=== PATIENT | female | born 1955 | race Caucasian/White ===

== ENCOUNTER 2017-10-25 21:36 | Emergency (ER) | payer OTHER ==
[2017-10-25] MEDS: hydrALAZINE INJ 20 MG/ML VIAL IV (21:43)
[2017-10-25] MEDS: METOCLOPRAMIDE INJ 10MG/2ML VIAL (J2765) IV (21:45)
[2017-10-25] MEDS: FUROSEMIDE 100 MG/10 ML VIAL (J1940) IV (22:00)
[2017-10-25] MEDS: NITROGLYCERIN 2% OINT 1 GM *U/D* PKT TOP (22:00)
[2017-10-25 22:02] LABS: HEMATOCRIT 41.4 % (36.0-47.0); HEMOGLOBIN 13.6 g/dl (12.0-15.5); MEAN CORPUSCULAR HEMOGLOBIN 30.7 pg (27.0-33.0); MEAN CORPUSCULAR HGB CONC 32.9 g/dl (32.0-36.5); MEAN CORPUSCULAR VOLUME 93.5 fl (80.0-96.0); PLATELET COUNT, AUTOMATED 273 10^3/uL (150-450); RED BLOOD COUNT 4.43 10^6/uL (4.00-5.40); RED CELL DISTRIBUTION WIDTH 13.2 % (11.5-14.5)
[2017-10-25 22:06] LABS: ABG BASE EXCESS -9.3 (-2.0-2.0); ABG HCO3 19.5 MEQ/L (22.0-26.0); ABG O2 SATURATION 78.4 % (95.0-99.0); ABG PARTIAL PRESSURE CO2 53.7 mmHg (35.0-45.0); ABG PARTIAL PRESSURE O2 52.3 mmHg (75.0-100.0); ABG STANDARD HCO3 16.8 MEQ/L (22.0-26.0); ABG TOTAL CO2 21.2 MEQ/L (23.0-31.0)
[2017-10-25 22:09] LABS: ABG pH (ARTERIAL) 7.178 UNITS (7.350-7.450)
[2017-10-25 22:12] LABS: INR 1.16
[2017-10-25 22:15] LABS: POSITIVE DIFF POS FLAG; WHITE BLOOD COUNT 14.9 10^3/uL (4.0-10.0)
[2017-10-25 22:16] LABS: ADD MANUAL DIFFER YES; DIFF SLIDE NUMBER 352
[2017-10-25] MEDS: NITROGLYCERIN/D5W 100MCG/ML 25 MG in APPROPRIATE DILUENT 1 EA IV (22:16)
[2017-10-25 22:21] LABS: EOSINOPHILS 1 % (0-5); LYMPHOCYTES 63 % (16-52); MONOCYTES 2 % (0-8); NEUTROPHILS 34 % (35-75); PLATELET ESTIMATE NORMAL (NORMAL)
[2017-10-25 22:35] LABS: ANION GAP 14 MEQ/L (8-16); BLOOD UREA NITROGEN 33 MG/DL (7-18); CALCIUM LEVEL 8.6 MG/DL (8.8-10.2); CARBON DIOXIDE LEVEL 20 MEQ/L (21-32); CHLORIDE LEVEL 107 MEQ/L (98-107); CPK CREATINE PHOSPHOKINASE 160 U/L (26-192); CREATININE FOR GFR 1.73 MG/DL (0.55-1.30); GLOMERULAR FILTRATION RATE 31.9 (>45); GLUCOSE, FASTING 383 MG/DL (70-100); POTASSIUM SERUM 3.8 MEQ/L (3.5-5.1); SODIUM LEVEL 141 MEQ/L (136-145); TROPONIN I 0.72 NG/ML (< 0.10)
[2017-10-25 22:40] LABS: CK-MB VALUE MASS 5.1 NG/ML (<3.6); MB/CK RELATIVE INDEX 3.18 (< OR =4); NT-PRO BNP 7412 PG/ML (<125)
[2017-10-25] MEDS: ASPIRIN 325 MG TAB PO (23:00)
[2017-10-26 05:38] LABS: CPK CREATINE PHOSPHOKINASE 598 U/L (26-192)
[2017-10-26 05:39] LABS: CK-MB VALUE MASS 46.3 NG/ML (<3.6); MB/CK RELATIVE INDEX 7.74 (< OR =4)
[2017-10-26] MEDS: HEPARIN DRIP 25,000 UNITS in APPROPRIATE DILUENT 1 EA IV (05:47)
[2017-10-26] MEDS: HEPARIN SOD (PORCINE) 5000 UNITS/ML VIAL IV (06:00)
[2017-10-26] MEDS ORDERED: TENECTEPLASE 50 MG KIT (TNKase)(J3101) IV (06:00)
[2017-10-26] MEDS: CLOPIDOGREL 300 MG TAB (PLAVIX) PO (06:01)
== END 2017-10-26 06:48 | disposition other institution (70) ==
LOC: M ED 21:36
DX: I21.4 Non-ST elevation (NSTEMI) myocardial infarction (principal); I16.0 Hypertensive urgency; J81.1 Chronic pulmonary edema; R00.0 Tachycardia, unspecified
CPT/HCPCS: J1940

== ENCOUNTER → 2018-01-22 | Outpatient (CLI) | payer OTHER | LOC: M RAD 09:08 | DX: I70.1 Atherosclerosis of renal artery (principal); I15.0 Renovascular hypertension; N18.4 Chronic kidney disease, stage 4 (severe) | CPT/HCPCS: 76770 ==

== ENCOUNTER → 2018-02-12 | Outpatient (REF) | payer OTHER ==
[2018-02-12 14:47] LABS: FERRITIN 107 NG/ML (8-252); IRON (FE) 44 UG/DL (50-170); TOTAL IRON BINDING CAPACITY 273 UG/DL (250-450)
[2018-02-12 21:03] LABS: PERCENT SATURATION 16.1 % (13.2-45.0)
== END ==
LOC: M LAB REF 13:47
DX: D50.9 Iron deficiency anemia, unspecified (principal)
CPT/HCPCS: 83550

== ENCOUNTER → 2018-04-11 | Outpatient (CLI) | payer OTHER ==
[~2018-04-11] MED LIST: **hydrALAZINE** 50 MG TAB PO; ISOVUE-300 61% 50ML VIAL (Q9967) As Ordered; LABETALOL 200 MG TAB PO; LIDOCAINE 2% MDV 20 ML VIAL As Ordered; amLODIPine 5 MG TAB PO
== END ==
LOC: M IRPRO 07:59
DX: I71.6 Thoracoabdominal aortic aneurysm, without rupture (principal); K76.89 Other specified diseases of liver; I10 Essential (primary) hypertension
CPT/HCPCS: Q9967